=== PATIENT | female | born 1995 | race American Indian/Alaskan Native ===

== ENCOUNTER 2017-06-27 09:09 | Emergency (ER) | payer MEDICAID ==
[2017-06-27 09:18] VITALS: BP 138/86
[2017-06-27] MEDS ORDERED: THERMAZENE 50 GRAM TP ONE ×2 (09:18→10:28)
[2017-06-27] MEDS ORDERED: BOOSTRIX IM ONE (09:27)
[2017-06-27] MEDS ORDERED: NORCO 7.5/325 PO ONE (09:27)
[2017-06-27] MEDS ORDERED: TORADOL IM ONE (09:27)
[2017-06-27] MEDS ORDERED: FLEXERIL PO ONE (09:27)
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
== END 2017-06-27 10:30 | disposition home or self-care (01) ==
LOC: ED 09:09
DX: T22.211A Burn of second degree of right forearm, initial encounter (principal); F17.200 Nicotine dependence, unspecified, uncomplicated; X10.0XXA Contact with hot drinks, initial encounter; Y93.89 Activity, other specified; Y92.511 Restaurant or cafe as the place of occurrence of the external cause; Y99.0 Civilian activity done for income or pay
CPT/HCPCS: 16020; 90471; 90715; 96372; 99282; J1885